=== PATIENT | male | born 1970 | race Native Hawaiian/Other Pacific Islander ===

== ENCOUNTER 2021-12-11 09:57 | Outpatient (CLI) | payer BC ==
[~2021-12-11 09:57] MED LIST: LISI10TA11 PO; METO50TA27 PO; REQUIP XL2 MG OR; VENLAFAXINE150 M1 PO; ZOLP10TA2 PO
== END 2021-12-11 19:06 | disposition home or self-care (01) ==
LOC: RAD 09:57
PROVIDERS: ATTEND Registered Nurse
DX: R06.02 Shortness of breath (principal)